=== PATIENT | male | born 2000 | race Two or more races ===

== ENCOUNTER 2023-08-11 00:54 | Emergency (ER) | payer OTHER ==
[~2023-08-11] VITALS: Ht 175.3 cm; Wt 72.6 kg
[2023-08-11] MEDS ORDERED: KEPPRA500 MG PO (01:12)
[2023-08-11] MEDS ORDERED: KETOROLAC TROMETHAMINE 30 MG VIAL IV STA ×2 (02:06→09:01)
[2023-08-11 02:25] LABS: HEMATOCRIT 45.4 % (39.0-48.0); HEMOGLOBIN 15.7 g/dL (13-16.00); MEAN CELL VOLUME 90.4 fL (80.0-100.00); MEAN CORPUSCULAR HEMOGLOBIN 31.2 pg (27.00-32.0); MEAN CORPUSCULAR HGB CONC 34.5 g/dl (32.0-36.0); PLATELET COUNT 510 K/uL (150-450); RED BLOOD COUNT 5.02 M/uL (4.00-6.00); RED CELL DISTRIBUTION WIDTH 13.2 % (11.5-14.5)
[2023-08-11 02:36] LABS: INR 0.99; PARTIAL THROMBOPLASTIN TIME 25.9 SECONDS (22.0-34.0); PROTHROMBIN TIME 10.4 SECONDS (9.0-11.5)
[2023-08-11 02:44] LABS: ALBUMIN 4.4 gm/dL (3.4-5.0); BILIRUBIN TOTAL 0.45 mg/dL (0.3-1.2); CALCIUM 9.7 mg/dL (8.5-10.1); CREATININE SERUM 1.35 mg/dL (0.70-1.30); GFR 64.39; POTASSIUM 3.46 mEq/L (3.5-5.1); TOTAL PROTEIN 8.4 gm/dL (6.4-8.2)
[2023-08-11] MEDS ORDERED: KETOROLAC TROMETHAMINE 30 MG VIAL ONE ×3 (02:45→09:50)
[2023-08-11] MEDS ORDERED: LevETIRAcetam 500 MG TAB. PO STA (08:26)
[2023-08-11 08:58] LABS: HEMATOCRIT 43.3 % (39.0-48.0); MEAN CELL VOLUME 89.9 fL (80.0-100.00); MEAN CORPUSCULAR HEMOGLOBIN 31.2 pg (27.00-32.0); MEAN CORPUSCULAR HGB CONC 34.8 g/dl (32.0-36.0); PLATELET COUNT 428 K/uL (150-450); RED BLOOD COUNT 4.82 M/uL (4.00-6.00)
[2023-08-11] MEDS ORDERED: 0.9 % SODIUM CHLORIDE 1,000 ML IV ONE (09:15)
== END 2023-08-11 11:49 | disposition designated cancer center or children's hospital (05) ==
LOC: ER 00:54
PROVIDERS: General Practice
DX: S42.351A Displaced comminuted fracture of shaft of humerus, right arm, initial encounter for closed fracture (principal); G40.89 Other seizures; S49.81XA Other specified injuries of right shoulder and upper arm, initial encounter; W18.39XA Other fall on same level, initial encounter; Y93.89 Activity, other specified; Y92.89 Other specified places as the place of occurrence of the external cause